=== PATIENT | female | born 1985 | race Caucasian/White ===

== ENCOUNTER 2018-08-13 18:21 | Inpatient (IN) | payer OTHER ==
[2018-08-13] MEDS ORDERED: LET GEL TOPICAL 1 EA SYR TP ONE (18:29)
--- NOTE | 2018-08-13 18:29 | EDPHY ---
H & P Time Seen by Provider: 08/13/18 18:26 HPI/ROS: CHIEF COMPLAINT: Right wrist lacerations HISTORY OF PRESENT ILLNESS: Patient is 33-year-old female brought here by EMS on M1 hold for intentional laceration of the right wrist. Patient has a history anxiety and depression but no prior history of suicide attempt or cutting. She states she was drinking today and had an"emotional outburst"and decided to cut her right wrist for relief of her emotional pain. States she does not feel that she is a threat to herself. She denies any homicidal ideations. She denies any hallucinations. She is drinking alcohol today but denies any other was drug use. She is taking all of prescribed medications. REVIEW OF SYSTEMS: Constitutional: No fever, no chills. Eyes: No discharge. ENT: No sore throat. Cardiovascular: No chest pain, no palpitations. Respiratory: No cough, no shortness of breath. Gastrointestinal: No abdominal pain, no vomiting. Genitourinary: No hematuria. Musculoskeletal: No back pain. Skin: No rashes. Neurological: No headache. (Ton Haas) Physical Exam: General Appearance: Alert and no distress. Hyperactive Eyes: Pupils equal and round no injection. Respiratory: Chest is nontender, lungs are clear to auscultation. Cardiac: regular rate and rhythm. Gastrointestinal: Abdomen is soft and nontender, no masses, bowel sounds normal. Musculoskeletal: Neck is supple and nontender. Extremities have full range of motion and are nontender. 2 lacerations to the right forearm 1 to the flexor aspect 1 to dorsum of the forearm. Both which are approximately 3 cm in length. There is no deep structure involvement. She has full range of motion of digits distally including full flexion and extension of all 5 digits. She is neurovascular intact distal to both lacerations. Skin: No rashes or lesions. (Ton Haas) Constitutional: Initial Vital Signs Temperature (C) 36.9 C 08/13/18 18:37 Heart Rate 84 08/13/18 18:37 Respiratory Rate 18 08/13/18 18:37 Blood Pressure 117/75 08/13/18 18:37 O2 Sat (%) 95 08/13/18 18:37 O2 Delivery Mode Room Air Allergies/Adverse Reactions: No Known Allergies Allergy (Unverified 08/13/18 18:42) Home Medications: Medication Instructions Recorded Carbidopa/Levodopa 1 tab PO HS PRN 08/13/18 [Carbidopa-Levodopa 25-100 Tab] Escitalopram Oxalate [Lexapro] 20 mg PO DAILY 08/13/18 Gabapentin [Neurontin 300 MG (*)] 300 mg PO TID 08/13/18 QUEtiapine FUMARATE [Seroquel 100 100 mg PO HS 08/13/18 mg (*)] traZODone [traZODONE 50MG (*)] 50 mg PO HS 08/13/18 Medical Decision Making Procedures: Procedure: Laceration repair. Verbal consent was obtained from the patient. The 2 right forearm lacerations both which are approximately 3-4 cm in length on the extensor and flexor aspect was anesthetized in the usual fashion. The wound was irrigated, draped and explored to its base. There were no deep structures involved. No tendon injury was identified. The laceration on the extensor aspect of the forearm was repaired with 6 simple interrupted sutures using 4-0 nylon. The laceration on the flexor aspect of the right forearm was repaired with 3 5-0 Vicryl sutures to approximate the wound and then 11 4-0 nylon sutures were placed to close the skin.. The wound repair was well approximated. The procedure was performed by myself. (Ton Haas) ED Course/Re-evaluation: I also saw the patient in the emergency department on arrival. She tells me she is suicidal. She has plan to hang herself. She just got out of rehab. She has 2 full-thickness forearm lacerations on the right arm. Self-inflicted with a knife. She admits drinking alcohol. (Michael Gracia) Patient here with laceration to the right forearm requiring extensive repair by myself. See my laceration report as detailed below. During her stay she. Quite calm after being given 1 mg of Ativan p.o.. During her observation after being medically cleared and awaiting placement she did attempt to hang herself and then was sedated with Zyprexa. She remained stable until time of transfer to Dr. Stratton at 11:58 p.m.. (Ton Haas) Differential Diagnosis: Polysubstance abuse, psychosis, bipolar disorder, suicidal ideation, brain mass , electrolyte disturbance, (Edith Haas - Data Points Laboratory Results: Laboratory Results 08/13/18 19:26 08/13/18 19:26 08/13/18 08/13/18 08/13/18 19:26 19:26 19:26 WBC 7.87 10^3/uL 10^3/uL (3.80-9.50) RBC 4.49 10^6/uL 10^6/uL (4.18-5.33) Hgb 14.5 g/dL g/dL (12.6-16.3) Hct 42.7 % % (38.0-47.0) MCV 95.1 fL fL (81.5-99.8) MCH 32.3 pg pg (27.9-34.1) MCHC 34.0 g/dL g/dL (32.4-36.7) RDW 12.4 % % (11.5-15.2) Plt Count 293 10^3/uL 10^3/uL (150-400) MPV 8.5 fL L fL (8.7-11.7) Neut % (Auto) 71.7 % % (39.3-74.2) Lymph % (Auto) 22.1 % % (15.0-45.0) Ector % (Auto) 4.4 % L % (4.5-13.0) Eos % (Auto) 0.6 % % (0.6-7.6) Baso % (Auto) 0.9 % % (0.3-1.7) Nucleat RBC Rel Count 0.0 % % (0.0-0.2) Absolute Neuts (auto) 5.64 10^3/uL 10^3/uL (1.70-6.50) Absolute Lymphs (auto) 1.74 10^3/uL 10^3/uL (1.00-3.00) Absolute Monos (auto) 0.35 10^3/uL 10^3/uL (0.30-0.80) Absolute Eos (auto) 0.05 10^3/uL 10^3/uL (0.03-0.40) Absolute Basos (auto) 0.07 10^3/uL 10^3/uL (0.02-0.10) Absolute Nucleated RBC 0.00 10^3/uL 10^3/uL (0-0.01) Immature Gran % 0.3 % % (0.0-1.1) Immature Gran # 0.02 10^3/uL 10^3/uL (0.00-0.10) Sodium 140 mEq/L mEq/L (135-145) Potassium 4.5 mEq/L mEq/L (3.3-5.0) Chloride 107 mEq/L mEq/L (97-110) Carbon Dioxide 23 mEq/l mEq/l (22-31) Anion Gap 10 mEq/L mEq/L (8-16) BUN 9 mg/dL mg/dL (7-23) Creatinine 0.8 mg/dL mg/dL (0.6-1.0) Estimated GFR > 60 Glucose 85 mg/dL mg/dL (70-100) Calcium 9.0 mg/dL mg/dL (8.5-10.4) Beta HCG, Qual NEGATIVE Salicylates < 1.0 mg/dL L mg/dL (2.0-20.0) Urine Opiates Screen Acetaminophen < 10 mcg/mL L mcg/mL (10-30) Urine Barbiturates Ur Phencyclidine Scrn Ur Amphetamine Screen U Benzodiazepines Scrn Urine Cocaine Screen U Marijuana (THC) Screen Ethyl Alcohol 170 mg/dL H mg/dL (0-10) 08/13/18 18:50 WBC RBC Hgb Hct MCV MCH MCHC RDW Plt Count MPV Neut % (Auto) Lymph % (Auto) Ector % (Auto) Eos % (Auto) Baso % (Auto) Nucleat RBC Rel Count Absolute Neuts (auto) Absolute Lymphs (auto) Absolute Monos (auto) Absolute Eos (auto) Absolute Basos (auto) Absolute Nucleated RBC Immature Gran % Immature Gran # Sodium Potassium Chloride Carbon Dioxide Anion Gap BUN Creatinine Estimated GFR Glucose Calcium Beta HCG, Qual Salicylates Urine Opiates Screen NEGATIVE (NEGATIVE) Acetaminophen Urine Barbiturates NEGATIVE (NEGATIVE) Ur Phencyclidine Scrn NEGATIVE (NEGATIVE) Ur Amphetamine Screen NEGATIVE (NEGATIVE) U Benzodiazepines Scrn NEGATIVE (NEGATIVE) Urine Cocaine Screen NEGATIVE (NEGATIVE) U Marijuana (THC) Screen NEGATIVE (NEGATIVE) Ethyl Alcohol Medications Given: Discontinued Medications Lorazepam (Ativan) 1 mg PO ONCE ONE Stop: 08/13/18 19:05 Last Admin: 08/13/18 19:29 Dose: 1 mg Olanzapine (Zyprexa Injection) 10 mg IM EDNOW ONE Stop: 08/13/18 22:25 Last Admin: 08/13/18 22:48 Dose: 10 mg Tetracaine/Epinephrine/Lidocaine (Let Gel Topical) 1 ea TP EDNOW ONE Stop: 08/13/18 18:30 Last Admin: 08/13/18 19:29 Dose: 1 ea Departure - Departure Referrals: NONE *PRIMARY CARE P,. [Primary Care Provider] - As per Instructions
[2018-08-13] MEDS ORDERED: LORazepam 1 MG TAB PO ONE (19:04)
[2018-08-13 19:36] LABS: PLATELET COUNT 293 10^3/uL (150-400)
[2018-08-13] MEDS ORDERED: OLANZapine 10 MG/2 ML VIAL ONE (22:15)
[2018-08-13] MEDS ORDERED: OLANZapine 10 MG/2 ML VIAL IM ONE (22:24)
--- NOTE | 2018-08-13 23:54 | ASMTTLCEVL ---
TLC Evaluation - Basic Information Evaluation Start Date and 08/13/2018 09:30 PM Time Hospital Status Answers: M1 Hold 72-hr M1 Hold Start Date 08/13/2018 05:46 PM and Time Patient statement Notes: "I had a hard time today, I just got out of inpatient and at [facility] and then went to [facility]. I was here for 1 week, from 07/20-07/26. I'm an alcoholic and depressed, I don't have bipolar. I went to a bar after I walked out of [facility] and I had 5 beers and 1 shot. My friend who picked me up said no one wanted to talk to me anymore. We went to [employer] so I could use the bathroom and I grabbed a knife and starting cutting on my arm. I wasn't trying to kill myself just ease the pain." Narrative Notes: PT is a 33 year old , single employed female. PT said she has lived in the [facility] for 20 years but is currently homeless since leaving the treatment center [facility]. PT was bought to [employer] by [place] [employer] who placed PT on a M1-Hold, stating, "Responded to report of female had cut herself. Female stated she feels suicidal and wants to hurt herself, and cutting herself was a release. Stated her plan to kill herself would be strangulation." ED reported that PT was pacing in her room, and was agitated, speech was pressured, was asking to pay bills. PT began taking sheets and wrapping them around her neck and had to have bed removed from room. She said she was trying to kill herself. PT was given 10 mg of Zyprexa and was sedated and falling asleep when this police radio dispatcher came to speak with her. She was able to answer dome questions but at times didn't make sense or her story was not logical, or follow a timeline that was logical. Diagnosis History Notes: PT reports alcoholism and depression. Prior suicide attempts Notes: Denies Prior hospitalizations Notes: Reports 1 prior at [facility] in July of this year. Treatment Responses Notes: Unknown History of violence Notes: Denies Therapist: [facility] Psychiatrist: Dr. Ketan Buchanan Medications (name, dosage, route, freq uency) Notes: Lexapro 20mg , Trazadone 50 mg, Seroquel 300HS, Geodon Allergies/Reaction Notes: Denies Sleep Notes: PT reports she doesn't sleep well, but Seroquel helps. Appetite Notes: Always good. Medical/Surgical history Notes: Denies Substance use history (frequency, intensity, his tory, duration) Notes: Alcohol use since age 20. denied any other substance use. Family composition Notes: mother and father and 1 sister. Need for family Answers: No participation in patient's care Family psychiatric/substance abuse history Notes: PT reported that her Father is an alcoholic. Developmental history Notes: Said no issues. Abuse concerns Answers: None Marital status/children Notes: Not and no children. Living situation Notes: Reports being homeless for that last month. Said she has been in the [facility] for the past 20 year. Sexual history/orientation Notes: unkown Peer support/family strengths Notes: Reports she has friends. 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 Notes: denies Legal Notes: Has a DUI. Gnosticism/Spiritual Notes: Denied Leisure Notes: Couldn't answer. Collateral Notes: None Patient's strengths Answers: Funny/Using Humor (Please select at least TWO strengths): Honest Willingness TLC Evaluation - Mental Status Exam Appearance: Answers: Inappropriate Unkempt Disheveled Eye Contact: Answers: Good/Direct Mood: Answers: Irritable Labile Affect: Answers: Anxious Distracted Indifferent Labile Behavior: Answers: Cooperative Fatigued Sleeping Speech: Answers: Relevant Thought Process: Answers: Disorganized Judgement: Answers: Poor Manic Signs/Symptoms Answers: Distractibility Impulsivity Mood Swings Hallucinations: Answers: None Current Stage of Change Answers: Relapse Pt reported to have Answers: Yes suicidal/self-injuring ideation/behavior? Pt reported to be making Answers: Yes suicidal/self-injuring threats? Pt reported to have Answers: No aggression/assault ideation/behavior? Pt reported to be making Answers: No aggression/assault threats? Ideation involves Answers: Yes serious/lethal intent? Ideation has Answers: No delusional/hallucinatory content? History of Answers: No suicidal/self-injuring ideation, behavior, or threats? History of Answers: No aggressive/assaultive ideation, behavior, or threats? History of serious Answers: No physical harm to self/others while in treatment setting? TLC Evaluation - Suicide/Homicide Risk Suicide Risk Factors: Answers: < 20 or > 40 Years of Age Agitation Alcohol/Heavy Drug Use Bipolar Disorder Impulsivity Unstable Living Situation Homicide/violence risk Answers: None factors: Current Suicidal Answers: Yes Ideation? Current Suicide Ideation intermittent Frequency: Current Suicidal Ideation Answers: Yes in the Past 48 Hours? Current Suicidal Ideation Answers: Yes in the Past Month? Current Suicidal Answers: No Ideation, Worst Ever? Ranking of patient's Answers: Moderate suicidal risk: Ranking of patient's Answers: Low homicidal risk: TLC Evaluation - Wrap-up BDI Total Score: unable to fill out BDI Question #2 Score: unable to casandra out BDI Question #9 Score: unable to fill out BSS Total Score: unable to fill out AXIS I Diagnosis (include DSM-V and ICD-10 codes), must also be entered in [email or web address], which is the source of truth. Notes: Bipolar I Disorder, severe 296.43 (F31.13) Evaluation End Date and 08/13/2018 11:52 PM Time (HH:TERRI): Date Signed: 08/13/2018 11:52 PM Electronically Signed By:Cassy Garcia
--- NOTE | 2018-08-13 23:57 | ASMTTCLDSP ---
TLC Discharge Disposition Disposition: Answers: Admit Disposition Notes: Notes: In consultation with [facility] ED physician, Michael Gracia MD and on-call psychiatrist, Elio Saenz MD, both concurred that pt appears to meet 27-65 criteria requiring psychiatric hospitalization as pt appears to be at risk of harm to self due to a mental illness condition. Was patient given the Answers: Yes Inpatient Behavioral Health Prohibited Belongings List while in the ED? For inpatient Dr. Shree Stratton admission, the following psychiatrist agreed to accept patient for admission to Behavioral Health ([facility]): Type of Hold: Answers: M1/72-hour Hold Hold initiated by: Answers: Police Date Signed: 08/13/2018 11:56 PM Electronically Signed By:Cassy Garcia
[2018-08-14] MEDS ORDERED: NICOTINE POLACRILEX 2 MG GUM B PRN (01:30)
[2018-08-14] MEDS ORDERED: ACETAMINOPHEN 325 MG TAB PO PRN (01:30)
[2018-08-14] MEDS ORDERED: OLANZapine 5 MG TAB PO PRN (01:31)
[2018-08-14] MEDS ORDERED: PROMETHAZINE HCL 25 MG SUPPR PR PRN (01:32)
[2018-08-14] MEDS ORDERED: chlordiazePOXIDE 25 MG CAP PO PRN (01:32)
[2018-08-14] MEDS ORDERED: PROMETHAZINE HCL 25 MG TAB PO PRN (01:32)
[2018-08-14] MEDS ORDERED: MAGNESIUM HYDROXIDE 30 ML UDCUP PO PRN (01:32)
[2018-08-14] MEDS ORDERED: THIAMINE HCL 100 MG TAB (ONCE) PO ONE (01:32)
[2018-08-14] MEDS ORDERED: MAG HYDROX/AL HYDROX/SIMETH 30 ML UDCUP PO PRN (01:32)
[2018-08-14] MEDS ORDERED: IBUPROFEN 200 MG TAB PO PRN (01:32)
[2018-08-14] MEDS: THIAMINE HCL 100 MG TAB (DAILY X 3) PO SCH (09:05)
[2018-08-14] MEDS: FOLIC ACID 1 MG TAB PO SCH (09:05)
[2018-08-14] MEDS: MULTIVITAMINS 1 EACH TAB PO SCH (09:06)
--- NOTE | 2018-08-14 09:19 | GCON ---
DATE OF CONSULTATION: 08/14/2018 She is a 33-year-old female who presents after an episode of spontaneous cutting on her wrists. She denies previous suicidal attempts. It happened in the middle of an emotional outburst while drinking alcohol. She acknowledges she thinks she has challenges with controlling her alcohol use, but does not have a history of withdrawal. She has a history of depression, but does not have any significant medical problems. She denies recent cough, chills, sputum, fever, nausea, vomiting, diarrhea, shortness of breath or chest pain. She has not had unexplained weight loss. She does not currently have symptoms of alcohol withdrawal. REVIEW OF SYSTEMS: A complete 10-point review of systems conducted, negative except as noted in HPI. ALLERGIES: No known drug allergies. HOME MEDICATIONS: Carbidopa, levodopa, quetiapine, gabapentin, trazodone, and escitalopram. SOCIAL HISTORY: Denies tobacco, alcohol as in HPI. No drugs FAMILY HISTORY: Reviewed and unremarkable. PHYSICAL EXAMINATION: VITAL SIGNS: Temp 37, blood pressure 140/100, pulse 67, breathing 16 times a minute, 96% on room air. GENERAL: No acute distress. HEENT: Sclerae anicteric. Oropharynx clear. Mucous membranes are moist. NECK : Supple, without lymphadenopathy or JVD. LUNGS: Clear to auscultation bilaterally. HEART: S1, S2. ABDOMEN: Soft, nontender, nondistended. LOWER EXTREMITIES: No edema. Calves nontender. SKIN: Without rash. Her left upper extremity shows 2 clean, dry, and intact incisions. Her hand is intact with flexion and extension. LABS: Tox screen is negative other than an alcohol level of 170. Sodium 140, potassium 4.5, chloride 107, bicarb 23, BUN 9, creatinine 0.8. Beta HCG is negative. Glucose 85. White count 8, hematocrit 43, platelets are 293,000. I have discussed the case with psychiatry MD. ASSESSMENT/PLAN: 33-year-old female with impulsive suicide attempt. 1. Suicide attempt. Management per Psychiatry. 2. History of alcohol use. Would monitor for signs of withdrawal. She does not appear to be in it at this time. 3. Self-inflicted laceration. She has no evidence of tendon injury both on exploration nor the exam. I would continue the local wound care and stitches should come out in about 10 days. 4. Hypertension. This is relatively mild and an isolated reading. Would follow. 5. Disposition per psychiatry. /[id number]/MODL MTDD
--- NOTE | 2018-08-14 10:06 | ASMTBHMTP ---
Master Treatment Plan Master Treatment Plan Answers: Depressed Mood with for: Suicidal Ideation Date: 08/14/2018 Diagnosis on Admission: Bipolar I Disorder, severe 296.43 (F31.13) Expected length of stay: 3 Reason for admission: Notes: The patient reported that her reason for admission was ETOH. She stated, "drinking" and "cutting to release at the time." This is consistent with the ED report and evaluation. The patient reported that she was recently discharged from treatment at [facility] and relapsed. The patient was undertalkative during this assessment. Patient's stated presenting problems: Notes: The patient reported that she struggled with substance abuse which exasperates her MH symptoms. The patient reported that she has a 10 year HX of depression. Patient's goals for treatment: Notes: The patient stated, "To get through it." Patient's strengths: Notes: The patient stated, "I'm resilient and I have experience with recovery." Identify supports outside of hospital: Notes: The patient denied having supports outside of the hospital. Upon further discussion, the patient reported that she has some friends who are supportive. The patient reported that although her family lives locally ([place], [place]) they are not supportive. Discharge criteria: Notes: Suicidal ideation will resolve and patient will have a plan to safely manage recurrent suicidal ideation. Initial disposition plan/considerations: Notes: The patient reported that [place] [address] and denied accessing housing resources in the community. She reported that she is awaiting acceptance into the program at [facility]. She needs a TB test prior to placement. The patient reported that she could otherwise utilize services at [facility] or [facility]. Master Treatment Plan Required Signatures Psychiatrist signature: Answers: Shree Stratton MD: RN on-shift signature: Answers: RN: Patient signature: Answers: Patient: Date Signed: 08/14/2018 10:06 AM Electronically Signed By:Lia Nelson
--- NOTE | 2018-08-14 15:20 | BAPA ---
DATE OF SERVICE: 08/14/2018 CHIEF COMPLAINT: "I had a hard time today. I just got out of inpatient at [facility], then went to [facility]. I am an alcoholic and depressed. I do not have bipolar. I went to a bar and had 5 beers and 1 shot. I was not trying to kill myself, just ease the pain." HISTORY OF PRESENT ILLNESS: The patient is a 33-year-old single employed female. She has lived in the [place] area for 20 years but is currently homeless. The patient was brought to [facility] ED by Shawn BLANTON who placed the patient on an M1 hold. The M1 hold states "responded to report of female who cut herself. Female stated she feels suicidal and wants to hurt herself and cutting herself was a relief. Stated a plan to kill herself would be strangulation." According to information obtained by the [facility] windows mobile developer, the patient had recently been discharged from [facility]. Her most recent inpatient stay at [facility] was for 1 week from 07/20 to 07/26/2018. The patient states she was there for alcohol detox. When she left [facility] she went to [facility], a residential Sober Living Facility. She states that she left [facility] because she no longer wanted to be at the facility. She went to a bar and drank 5 beers and 1 shot. She called a friend in [place] to come and pick her up. The patient states that "no one wanted to talk to me anymore." Because the patient had relapsed, she felt ostracized from her support community. The patient states that when she went to the [facility] to use the bathroom, she was feeling angry at herself, guilty , and states that she grabbed a knife and started cutting on her arm. She told the [facility] windows mobile developer "I wasn't trying to kill myself. I just wanted to ease the pain." In the emergency department, the patient's speech was rapid, at times nonsensical. She was very tangential, loose associations. Based on her presentation the next day on the inpatient behavioral services unit on [address] [place] [address], when she was evaluated by the psychiatrist, her symptoms in the emergency department seem most likely to be attributable to acute intoxication. Her BAL was 170 and was still hovering close to the legal limit of intoxication when she was evaluated by the [facility] staff. When this MD met with the patient on the behavioral health services unit, she was calm, pleasant, cooperative. She was lying in bed, dressed in a green hospital gown with the sheets pulled up. She was not exhibiting any signs or symptoms of franco. She had decreased spontaneity and fluency of speech. Her speech rate was slow. Volume was normal. She did not have elevated or elated mood. She did not have delusions. No psychotic symptoms were present. The patient did report feeling "stressed." States that she is overwhelmed by personal issues and problems and is having a hard time getting sober and maintaining her sobriety, which she says is one of the main conflicts that she is having with her support group. She told this MD that she was not having any thoughts, plans, or intents to hurt herself or anyone else. She said "I am not suicidal. I do not know why I am here." The patient also denied any withdrawal symptoms. She denied anxiety, fever, chills, nausea, vomiting, tremors. The patient stated that she does have an outpatient psychiatrist whom she sees, Roddy Hamlin, states that she is interested in going back to receive treatment and the patient states that she is interested in seeing an individual counselor. She would be open to the possibility of having a certified addictions counselor. She is not currently participating in any type of substance abuse treatment, although she did recently leave [facility] because she no longer wanted to be in a treatment facility. PAST PSYCHIATRIC HISTORY: The patient reports that she has a history of alcoholism and depression. The only other time she has been in a psychiatric facility was her admission to [facility] for 1 week in July. She states that she was there for "detox only." She denies any prior suicide attempts. She denies ever cutting or slicing her wrists in the past. She says that the episode at [employer] when she cut herself with a knife was the only time that she has made the self-inflicted injury. The patient is currently seeing Dr. Roddy Hamlin, a psychiatrist in practice in [place]. She has no therapist. She is not receiving any outpatient substance abuse treatment. She is not attending . ALLERGIES: The patient has no known drug allergies. CURRENT MEDICATIONS: Include Lexapro 20 mg p.o. daily, gabapentin 300 mg p.o. three times daily, Seroquel 100 mg p.o. at bedtime, trazodone 50 mg p.o. at bedtime. LABS: From the [facility] ED, white cell count was 7.87, hemoglobin 14.5, hematocrit 42.7, platelet count 293. Sodium 140, potassium 4.5, chloride 107, BUN 9, creatinine 0.8, glucose 85, calcium 9.0. Her beta hCG was negative. Urine drug screen was negative for all drugs of abuse except for alcohol. Level was 170. Her salicylate and acetaminophen levels were both undetected. PAST MEDICAL HISTORY: The patient denies any chronic medical issues. She does state that she has had 1 elective surgery in the past. SOCIAL HISTORY: Patient reports being homeless for the last month. Prior to that she said that she has lived in the [place] area for about 20 years. She reports that her father is an alcoholic. Her mother and father are both still living. She has 1 sibling, a sister. She has a group of friends in [place]. She states that she has been staying with a friend in [place] and plans to go back there when she is discharged from the hospital. The patient states that she does have a college education. She graduated with a BA in psychology. She says that she currently works as a primer charger in a coffee shop. FAMILY HISTORY: The patient states that her father was an alcoholic. She denies any other family history of mental illness. SUBSTANCE USE HISTORY: The patient states that she has been drinking alcohol since she was 20 years old. She states that she has had a hard time controlling her alcohol use. States that she has had very limited periods of sobriety since she started drinking at 20. She has a prior history of DUI. She has done detox last month for a week at [facility]. No prior history of rehab. No outpatient substance use treatment. Not currently participating in the 12 step groups. The patient denies use of all other recreational drugs and denies smoking tobacco. LEGAL HISTORY: Patient does have 1 prior DUI, unknown date. No current legal issues. MENTAL STATUS EXAMINATION: This is an overweight female, shaved head , tattoos on her arms, lying down in bed with a green hospital gown, sheets pulled up to her chin. She is alert and oriented x4. Her affect is flat. Her demeanor is appropriate. She makes good eye contact. Her speech rate is slow. Volume is normal. She denies feeling helpless, hopeless, worthless, anxious. She does report feeling sad because of her recent relapse and because she has a strained relationship with her social support network because she relapsed on alcohol. She denies any symptoms of psychosis. There are no signs or symptoms of franco. The patient denies increase in goal-directed activity, decreased need for sleep, racing thoughts. She has no pressured speech or grandiose delusions. She does not have elated or elevated mood. She denies any thoughts , plans, or intents to hurt herself or anyone else at the current time. Her thought process is linear and goal directed. Her insight and judgment are both impaired as evidenced by her going to a bar and drinking alcohol 2 days after she got out of detox and 1 day after she left a residential substance abuse treatment facility. IMPRESSION: 1. Substance-induced mood disorder. 2. Alcohol use disorder, severe. 3. Lack of social support, homeless, financial problems, currently employed but job may be in jeopardy, strained relationship with social support system, estranged from family, guilt about recent relapse. PLAN: 1. Admit to the inpatient Behavioral Health Services Unit on [address] on an M1 hold. 2. Monitor closely for safety. The patient is not currently exhibiting any signs of psychosis or unsafe behavior. She is acting appropriately. She is denying any thoughts, plans, or intents to hurt herself or anyone else. 3. We will continue to monitor and observe the patient. She is currently on a CIWA protocol to monitor for alcohol withdrawal symptoms. The patient denies experiencing any withdrawal symptoms. Denies ever having DTs or withdrawal related seizures. Her CIWA score has been zero since admission. 4. The patient states that she has been taking Lexapro, gabapentin, Seroquel, and trazodone. She signed in for staff to verify her medication doses and last refills with her outpatient pharmacy, which is a [facility] in [place]. She also stated that the female friend that she has been staying with in [place] has her pill bottles and stated that she would contact her friend and arrange for her friend to bring the pill bottles here to the unit as well as come for a visit. She also agreed that the career guidance technician could speak with her friend in order to discuss safety plan and aftercare planning for when the patient discharges. 5. Estimated length of stay is 2-3 days. The patient is currently denying any thoughts, plans, or intents to hurt herself or anyone else. She does not pose a danger to herself, danger to others, and is not currently gravely disabled. Will likely be discharged upon the expiration of her mental health hold. Aftercare planning will be done by the career guidance technician. Patient would like to return to see her outpatient psychiatrist, Roddy Hamlin, and is open to participating in individual psychotherapy with a certified addictions counselor and states that she would be willing to consider starting intensive outpatient group for substance abuse management and possibly attend a 12 step group upon discharge. /[id number]/MODL MTDD
[2018-08-14] MEDS: ESCITALOPRAM OXALATE 10 MG TAB PO SCH (15:26)
[2018-08-14] MEDS: GABAPENTIN 300 MG CAP PO SCH ×2 (15:27→19:16)
[2018-08-14] MEDS: traZODone 50 MG TAB PO SCH (19:16)
[2018-08-14] MEDS: QUEtiapine FUMARATE 100 MG TAB PO SCH (19:16)
[2018-08-15] MEDS: MULTIVITAMINS 1 EACH TAB PO SCH (09:47)
[2018-08-15] MEDS: ESCITALOPRAM OXALATE 10 MG TAB PO SCH (09:47)
[2018-08-15] MEDS: FOLIC ACID 1 MG TAB PO SCH (09:47)
[2018-08-15] MEDS: GABAPENTIN 300 MG CAP PO SCH ×3 (09:47→19:53)
[2018-08-15] MEDS: THIAMINE HCL 100 MG TAB (DAILY X 3) PO SCH (09:47)
[2018-08-15] MEDS ORDERED: PNEUMOCOCCAL 0.5ML VACCINE VIAL IM ONE (09:58)
[2018-08-15] MEDS: hydrOXYzine HCL 25 MG TAB PO PRN ×2 (11:46→17:55)
--- NOTE | 2018-08-15 13:35 | ASMTBHFAM ---
Notes Note: Notes: This newspaper writer met with the patient and her parents, who she invited on to the unit. The patient has not been particularly forth coming; her responses are short. The patient's affect is flat and she presents as irritable. The patient reported that her therapist at [facility], where she was most recently in treatment (three weeks), Carmela Olsen submitted an application for [employer]. The patient reported that she plans to return to [facility] [place] temporarily, on the condition that she remains sober, while she determines whether she will participate in [facility] [employer], [facility], [facility], or [facility] programming. The patient reported that she has already screened over the phone and that her insurance eligibility is pending. This newspaper writer asked the patient to chose one facility to seek services from and to call and make those arrangements tomorrow morning to secure her discharge plan. The patient's mother, Kena, stated that the patient could not come home with her and her , Angel, because they are "triggers" for the patient and they keep ETOH in the home. Date Signed: 08/15/2018 01:35 PM Electronically Signed By:Lia Nelson
[2018-08-15] MEDS ORDERED: TUBERCULIN (PPD) 5 TU/0.1 ML SYRINGE ID ONE (14:48)
--- NOTE | 2018-08-15 14:56 | SOAPPROG ---
SOAP Progress Note Assessment/Plan: Assessment: 33 yo with h/o depression, anxiety and severe alcohol dependence. She was at [facility] for detox 07/20/18-07/26/18 and then at [facility] re[facility] x 3 weeks, but left abruptly and relapsed immediately. Plan: 08/15/18 14:50 1. Patient denies any w/d sxs. Her CIWA scores have been 0 x 48 hrs. She only drank one day in past 3 weeks (the day she left rehab), so is unlikely to have any significant w/d. Will d/c CIWA. 2. Patient told CC that the at [facility] put in request for patient to go to [facility], but so far, patient has no confirmation that she will be able to go to that program. 3. In the meantime, patient has already inquired at [facility], [facility] about getting admitted to inpatient rehab. She says she is waiting to hear if her insurance will approve or not. MD and CC both encouraged patient to call on Thursday to find out where she's eligible to go. 4. [facility] visit on Thursday and they support patient going to inpatient rehab. They said patient could not stay at their house b/c they are "triggers" for her and they keep ETOH at home. 5. [facility] expires tomorrow. 6. Patient requested PPD placed in case she goes to [facility]. Subjective: Patient still guarded and not very forthcoming. She denies any w/d sxs. She only reports 5 beers and 1 shot in past 3 weeks, which she drank on day she left rehab at [facility] and went to [facility]. Her BAL was 170 on 08/13/18. She had visit with [facility] today and they are very supportive of her going to long-term rehab. They want her to go to [place], but understand it may be many weeks or months before she can get admitted there. Patient told CC she already contacted [facility], [facility] about inpatient rehab and is waiting to hear if her insurance will approve her treatment or not. She denies any SI/HI, denies psychosis, denies racing thoughts, grandiose delusions, elated mood, increased activity and decreased need for sleep. She denies feeling helpless, hopeless. Objective: Vital Signs Temp Pulse Resp BP Pulse Ox 36.9 C 82 16 126/67 H 96 08/15/18 10:00 08/15/18 10:00 08/15/18 10:00 08/15/18 10:00 08/15/18 10:00 MSE: Affect: Flat, guarded Mood: "OK" TP: Linear TC: Denies SI/HI Insight/ Judgment: Poor a/e/b recent relapse - Time Spent With Patient Time Spent With Patient: 15" - Pending Discharge Pending Discharge Within 24 Hours: No Pending Discharge Within 48 Hours: No ICD10 Worksheet Patient Problems: Problems Problem Status Onset Alcohol use disorder, severe, dependence Acute Substance or medication-induced depressive disorder Acute - ICD10 Problem Qualifiers (1) Substance or medication-induced depressive disorder (2) Alcohol use disorder, severe, dependence
[2018-08-15] MEDS: QUEtiapine FUMARATE 100 MG TAB PO SCH (19:52)
[2018-08-15] MEDS: traZODone 50 MG TAB PO SCH (19:52)
[2018-08-16 06:41] VITALS: BP 127/73
--- NOTE | 2018-08-16 08:20 | BDS ---
REASON FOR ADMISSION: From the ED note dated 08/13/2018, the patient was brought to the [facility] ER by EMS on an M1 hold for intentionally cutting her wrist. The patient reported she was drinking and had an "emotional outburst," and decided to cut her right wrist for relief of emotional pain. The patient reported in the ED that she did not feel like she was a threat to herself. The patient denied any homicidal ideations. Denied hallucinations. The patient's blood alcohol level at time of presentation at the ED was 170. The patient was admitted involuntarily on an M1 hold due to being a danger to herself. The patient was admitted for safety crisis stabilization and medication evaluation. ADMITTING DIAGNOSES: 1. Major depression. 2. Alcohol use disorder. ADMISSION PHYSICAL EXAM: The patient was seen for an Internal Medicine consultation on 08/14/2018, for medical clearance for inpatient Behavioral Health stay. The patient was medically cleared for inpatient psychiatric hospitalization and treatment. For further details, please refer to the consultation dated 08/14/2018. ADMISSION LABS: CBC from 08/13/2018, within normal limits except MPV was low at 8.5, monocytes were low at 4.4. The BMP from 08/13/2018, within normal limits. Beta hCG qualitative test from 08/13/2018, was negative. Toxicology screen from 08/13/2018, was negative for substances of abuse for the substances that were tested and was positive for ethyl alcohol with a level of 170. Lipid panel from 08/16/18 WNL expect LDL cholesterol calculated was low at 68; A1c from 08/16/18 WNL. MAJOR PROCEDURES OR TESTS: None. HOSPITAL COURSE: The most prominent symptoms and behaviors while the patient was here were moderate depression and moderate anxiety. Target symptoms during hospitalization, anxiety and depression. Treatment modalities utilized were milieu and group therapy. The patient's outpatient medications were continued and were tolerated with no report of side effects and with good response. The medications that were continued are current medications listed below. The patient has improved considerably with no signs of psychiatric symptoms and no psychiatric symptoms expressed at discharge. The patient reports she has improved since admission. States to be in stable condition, feels safe to discharge and she contracts for safety. Patient's response to treatment was good. There were no adverse or unexpected results of treatment. The patient was safe throughout her stay, active in treatment, engaged in groups, and was appropriate with staff and other patients. The patient met with the treatment team prior to discharge to assess readiness to discharge and reviewed discharge plan. The treatment team consensus is the patient is in stable condition, has a safe discharge plan and is ready to discharge today. CONDITION AT DISCHARGE: Patient is in stable condition and is no longer a danger to self or others, and is not gravely disabled due to mental illness. Patient is no longer in need of inpatient level of care, and can be safely and effectively treated within the community. The patients level of risk at time of discharge is low. MSE: The patient is casually dressed and with good hygiene , and looks stated age. Patient is sitting, posture is upright, and position is relaxed. Patient appears awake, alert, and responds appropriately and reasonably during interview. Patient is engaged, relates well to interviewer, and emotional facial expression is appropriate to situation and changes appropriately with topic. Patient is cooperative, makes comfortable eye contact , and movements are voluntary, deliberate, coordinated, and smooth and even with no inappropriate movements. Patient makes laryngeal sounds effortlessly and shares conversation appropriately; pace of conversation is appropriate, and stream of talking is fluent; articulation is clear and understandable; word choice is effortless and appropriate for education level; completes sentences, occasionally pausing to think; rate and volume are appropriate for interview and setting. Patient reports mood as euthymic. Patients affect is stable with full variable range, congruent with mood, and appropriate to speech and circumstances. Patient has linear and logical thinking, with no loose associations, tangential thought, thought blocking, concrete thinking, or any other signs of formal thought disorder. Patient denies suicidal and homicidal ideation, and denies hallucinations and delusions. Patient appears to be a reliable historian with sound judgement and good insight into current condition. Patient has no apparent dysfunction in recent or remote memory noted , and no evidence of gross cognitive dysfunction noted at any point during the interview. DISCHARGE DIAGNOSES: 1. Major depressive disorder, recurrent, severe. 2. Alcohol use disorder, severe. CURRENT MEDICATIONS: After reviewing options, risks and benefits, the patient agrees to continue current medications as follows: 1. Folic acid 1 mg p.o. daily. 2. Multivitamin 1 daily. 3. Thiamin B1 100 mg p.o. daily. 4. Trazodone 50 mg p.o. at bedtime. 5. Lexapro 20 mg p.o. daily. 6. Carbidopa/levodopa 25-100 tabs, 1 tab p.o. at bedtime p.r.n. 7. Gabapentin 300 mg p.o. three times daily. 8. Seroquel 100 mg p.o. at bedtime. The patient requests prescriptions for the following medications at discharge: 1. Seroquel 100 mg p.o. at bedtime. 2. Gabapentin 300 mg p.o. three times daily. Prescriptions for 30 days are provided for each of these medications. The prescriptions are reviewed with the patient at time of discharge to ensure accuracy and patient understanding. DISPOSITION: The patient left hospital independently and voluntarily with her parents and plans to stay with her parents. FOLLOWUP: cost coordinator reports the appropriate outpatient follow-up services have been established and outpatient appointments have been scheduled. The patient received written instructions with times and dates of outpatient follow-up appointments. The following follow-up recommendations were provided to the patient at discharge: Continue psychotropic medications as prescribed and attend appointments as scheduled. Report any side effects to a psychiatric outpatient provider, a primary care provider, or other health spiritual care coordinator. Address any questions or problems concerning the psychotropic medications with a psychiatric outpatient provider, a primary care provider, or other health spiritual care coordinator. Contact [facility] or [facility], or go to the nearest emergency room, if you are ever a danger to yourself/others, or unable to care for yourself. As soon as possible, establish a routine medication management treatment with a psychiatric provider, establish routine therapy appointments, and follow-up with a primary care provider. SUBSTANCE ABUSE BRIEF INTERVENTION: Brief intervention regarding the risks of alcohol abuse is provided to patient with goal to reduce the risk of harm that could result from the continued use of alcohol, with the general aim to investigate the problem, raise awareness of problem, develop a solution with the patient, recommend a specific change or activity, and motivate the patient toward change. Assess substance abuse behavior and give supportive advice about harm reduction, recommend a reduction in hazardous/at-risk consumption patterns, and facilitate referrals for additional specialized treatment with home care rn. Intermediate goal is for the patient to quit use and attend AA meeting and outpatient substance abuse treatment at [facility]. Intervention focus on intermediate goals to allow for more immediate success in the treatment process to keep the patient motivated. Review following with patient: Alcohol/Binge Drinking risks: short-term: injuries, violence, alcohol poisoning, risky sexual behaviors. Long-term: high blood pressure, stroke, liver disease, digestive problems, cancer, learning and memory problems, depression and anxiety, social problems, and alcohol dependence. OUTPATIENT SUBSTANCE ABUSE TREATMENT: Patient referred to outpatient provider and treatment for continued treatment related to substance abuse. LEGAL COURSE: The patient was admitted on an M1 hold for involuntary inpatient psychiatric hospitalization. The patient discharged today independently and voluntarily. ATTITUDE AT THE TIME OF DISCHARGE: The patients attitude was positive at time of discharge, and patient reports looking forward to discharging today. The patient reports she feels safe to discharge, is no longer a danger to herself or others, is in stable condition, and contracts for safety. Patient states she will continue medications as prescribed, and establish medication management treatment with an outpatient provider after discharge. Patient reports she understands the information that has been provided to her, and she understands, accepts, and agrees to psychotropic medications. Patient describes internal protective factors as the coping skills she has learned while hospitalized here, and she plans to continue to practice these coping skills after discharge. LABS AND RADIOLOGY STUDIES: There were no pending labs or studies at the time of discharge. ADVANCED DIRECTIVES: There were no advance directives on file, and the patient was full code during this hospitalization. The following psychotropic medication treatment informed consent and recommendations were provided to the patient at time of discharge. Patient reports she understands, accepts, and agrees to the information that has been provided. PSYCHOTROPIC MEDICATION TREATMENT INFORMED CONSENT and RECOMMENDATIONS: Review nature of condition, diagnosis, and prognosis. Review nature and purpose of psychotropic medication treatment. Review type of psychotropic medications being prescribed. Review risk and benefits of psychotropic medication treatment. Review probable length of time will need to take medications. Review risk and benefits of not undergoing psychotropic medication treatment. Review alternative treatments to psychotropic medications. Review psychotropic medications contraindications, side effects, and importance of reporting any side effects to a psychiatric provider, primary care provider, or other health spiritual care coordinator. Review importance of her asking a psychiatric provider or primary care provider any questions or problems concerning the psychotropic medications. Review importance of reporting to a psychiatric provider, primary care provider, or other health spiritual care coordinator if she plans to or becomes . Review safety plan and the importance to contact [facility] or [facility] , or go to the nearest emergency room, if ever a danger to yourself/others, or unable to care for yourself. Recommend upon discharge to establish routine medication management treatment with a psychiatric provider, establish routine therapy appointments, and follow-up with a primary care provider. Verify patient understands, accepts, and agrees to the information that has been provided. SUICIDE ASSESSMENT FIVE-STEP EVALUATION AND TRIAGE (1) RISK FACTORS: (a) Suicidal behavior: reports no history of attempts (b) Current/past psychiatric disorders: Major Depressive Disorder, Alcohol Use Disorder (c) Light symptoms: none expressed or exhibited at time of discharge (d) Family history: none (e) Precipitants/Stressors/Interpersonal: none (f) Change in treatment: discharge from psychiatric hospital (g) Access to firearms: none (2) PROTECTIVE FACTORS: (a) Internal: coping skills learned while hospitalized (b) External: family, friends, and future; treatment and ongoing sobriety (3) SUICIDAL INQUIRY: (a) Ideation: none (b) Plan: none (c) Behaviors: none; patient was safe throughout stay with no suicidal or parasuicidal behaviors (d) Intent: none (4) RISK LEVEL: Low: modifiable risk factors, strong protective factors; no suicidal or self-injurious ideation. Intervention: treatment plan to reduce symptoms including medications and therapy, provided emergency/crisis numbers, and established follow-up plan. /[id number]/[id number]
[2018-08-16] MEDS: FOLIC ACID 1 MG TAB PO SCH (08:53)
[2018-08-16] MEDS: GABAPENTIN 300 MG CAP PO SCH (08:53)
[2018-08-16] MEDS: ESCITALOPRAM OXALATE 10 MG TAB PO SCH (08:53)
[2018-08-16] MEDS: THIAMINE HCL 100 MG TAB (DAILY X 3) PO SCH (08:53)
[2018-08-16] MEDS: MULTIVITAMINS 1 EACH TAB PO SCH (08:54)
== END 2018-08-16 11:50 | disposition home or self-care (01) | DRG 881 ==
LOC: EDUNIT# → BBEH 08-14 01:10
PROVIDERS: ADMIT Psychiatry & Neurology Psychiatry; ATTEND Psychiatry & Neurology Psychiatry
PROC: 0HQDXZZ Repair Right Lower Arm Skin, External Approach (ICD-10-PCS; principal; 2018-08-14)
DX: F32.9 Major depressive disorder, single episode, unspecified (principal); Z72.89 Other problems related to lifestyle; S51.811A Laceration without foreign body of right forearm, initial encounter; X78.1XXA Intentional self-harm by knife, initial encounter; Y92.512 Supermarket, store or market as the place of occurrence of the external cause; Z23 Encounter for immunization; I10 Essential (primary) hypertension
CPT/HCPCS: 80305; G0008; G0009; G0480